=== PATIENT | female | born 1980 | race Caucasian/White ===

== ENCOUNTER 2018-05-06 19:40 | Emergency (ER) | payer MEDICAID, OTHER ==
[~2018-05-06] VITALS: Ht 165.1 cm; Wt 112.7 kg
[2018-05-06 19:40] VITALS: BP 122/86
--- NOTE | 2018-05-06 20:37 | NUR ---
PT BIB SELF C/O BL LOWER EXTREMITY SWELLING AND PAIN. PT IS OBESE, NO PITTING EDEMA NOTED, +PEDAL PULSES, NO REDNESS NOTED. PT IS LAYING IN BED, IN NO APPARENT SIGNS OF DISTRESS. PMH DM BUT CURRENTLY NOT TAKING MEDICATIONS B/C "DOESNT HAVE IT NOW"
[2018-05-06] MEDS ORDERED: IBUPROFEN 800 MG TAB PO ONE (20:50)
--- NOTE | 2018-05-06 22:15 | NUR ---
Dr. Ware evaluating patient at bedside.
[2018-05-06 22:20] VITALS: BP 126/85
--- NOTE | 2018-05-06 22:21 | NUR ---
Patient discharged with v/s stable. Written and verbal after care instructions given and explained. Patient alert, oriented and verbalized understanding of instructions. Ambulatory with steady gait. All questions addressed prior to discharge. ID band removed. Patient advised to follow up with PMD. Rx of MOTRIN 800 MG given. Patient educated on indication of medication including possible reaction and side effects. Opportunity to ask questions provided and answered.
== END 2018-05-06 22:21 | disposition home or self-care (01) ==
LOC: MED 19:40
DX: R60.0 Localized edema (principal); M79.1 Myalgia; E11.9 Type 2 diabetes mellitus without complications
CPT/HCPCS: 93970; 99284; Q0092

== ENCOUNTER 2024-06-05 11:11 | Emergency (ER) | payer MEDICAID, OTHER ==
[~2024-06-05] VITALS: Ht 154.9 cm; Wt 107.5 kg
[2024-06-05 11:34] VITALS: BP 137/82; PULSE 69; RESP 19; TEMP 96.9; O2SAT 100
[2024-06-05 12:28] LABS: BASOPHILS % (AUTO) 0.3 % (0.0-2.0); EOSINOPHILS # (AUTO) 0.2 K/uL (0-0.4); EOSINOPHILS % (AUTO) 2.8 % (0.0-4.0); HEMATOCRIT 39.9 % (36-48); HEMOGLOBIN 13.2 g/dL (12.0-16.0); LYMPHOCYTES # (AUTO) 1.6 K/uL (2.5-16.5); LYMPHOCYTES % (AUTO) 25.7 % (20.5-51.1); MEAN CORPUSCULAR HEMOGLOBIN 28 pg (27-31); MEAN CORPUSCULAR HGB CONC 33 g/dL (33-37); MEAN CORPUSCULAR VOLUME 84.3 fL (80-94); MONOCYTES # (AUTO) 0.3 K/uL (0.8-1.0); MONOCYTES % (AUTO) 5.3 % (1.7-9.3); NEUTROPHILS # (AUTO) 4.2 K/uL (1.8-7.7); NEUTROPHILS % (AUTO) 65.9 % (42.2-75.2); PLATELET COUNT (AUTO) 189 K/uL (140-450); RED BLOOD CELL COUNT(AUTO) 4.73 MIL/uL (4.20-5.40); RED CELL DISTRIBUTION WIDTH 14.1 % (11.6-13.7); WHITE BLOOD COUNT (AUTO) 6.4 K/uL (4.8-10.8)
[2024-06-05 12:29] LABS: APPEARANCE,URINE CLEAR (CLEAR); BILIRUBIN,URINE NEGATIVE (NEGATIVE); BLOOD, URINE 1+ (NEGATIVE); COLOR,URINE YELLOW (YELLOW); LEUKOCYTE ESTERASE ,URINE 1+ (NEGATIVE); NITRITE, URINE NEGATIVE (NEGATIVE); PROTEIN,URINE NEGATIVE (NEGATIVE); UGLUCOSE NEGATIVE (NEGATIVE)
[2024-06-05 12:37] LABS: BACTERIA,URINE 2+ /HPF (None Seen); MUCUS,URINE 1+ /LPF (None Seen); SQUAMOUS EPITHELIAL CELL,UR 4-10 (MOD) /LPF (0-3 (FEW)); YEAST,URINE Few /HPF (None Seen)
[2024-06-05 12:38] LABS: ANION GAP 10.6 (8-16); CARBON DIOXIDE 28.5 mmol/L (21-32); CREATININE 0.6 mg/dL (0.6-1.3); POTASSIUM 4.1 mmol/L (3.5-5.1)
[2024-06-05] MEDS: NACL 0.9% 1,000 ML IV ONE (12:39)
[2024-06-05] MEDS: ONDANSETRON 4 MG/2 ML VIAL IVP ONE (12:41)
[2024-06-05 12:44] LABS: ALBUMIN 3.4 g/dL (3.4-5.0); BILIRUBIN,DIRECT 0.2 mg/dL (0.0-0.3); TOTAL BILIRUBIN 0.8 mg/dL (0.0-1.0); TOTAL PROTEIN, SERUM 7.2 g/dL (6.4-8.2)
[2024-06-05] MEDS: KETOROLAC 30 MG/ML VIAL IVP ONE (12:44)
[2024-06-05] MEDS ORDERED: CEPH-588 PO (13:48)
[2024-06-05 14:40] VITALS: BP 115/68; PULSE 60; RESP 19; TEMP 36.05844; O2SAT 100
== END 2024-06-05 14:40 | disposition home or self-care (01) ==
LOC: MED 11:11
DX: N39.0 Urinary tract infection, site not specified (principal); M79.605 Pain in left leg; M79.604 Pain in right leg; R11.0 Nausea; R51.9 Headache, unspecified; Z79.2 Long term (current) use of antibiotics
CPT/HCPCS: 36415; 74176; 80048; 80076; 81001; 81025; 82550; 83690; 85025; 87086; 96361; 96374; 96375; 99285; J1885; J2405; J7030